=== PATIENT | male | born 1970 | race Caucasian/White ===

== ENCOUNTER 2019-06-23 09:37 | Day surgery (SDC) | payer BC ==
[~2019-06-23] VITALS: Ht 182.9 cm; Wt 107.3 kg
[~2019-06-23 09:37] MED LIST: ALLEGRA ALLERG180 MG; CEPH500 PO; CRUTCH USE; HYDMOR2 PO; HYDPAM50 PO; IRBE150; NAPR220; OXYACE5T PO; PROM25 PO; RXCEPH500 PO; RXHYDMOR2 PO; SULTRISS PO; TADA10TA; THERA1 EACH; VENL150ER PO
== END 2019-06-23 11:48 | disposition home or self-care (01) ==
LOC: ORSCSDS 09:37
PROVIDERS: Surgery
PROC: 0DBK8ZX Excision of Ascending Colon, Via Natural or Artificial Opening Endoscopic, Diagnostic (ICD-10-PCS; principal; 2019-06-23 11:00)
PROC: 0DBL8ZX Excision of Transverse Colon, Via Natural or Artificial Opening Endoscopic, Diagnostic (ICD-10-PCS; principal; 2019-06-23 11:00)
DX: Z12.11 Encounter for screening for malignant neoplasm of colon (principal); Z86.010 Personal history of colon polyps; D12.2 Benign neoplasm of ascending colon; D12.3 Benign neoplasm of transverse colon; I10 Essential (primary) hypertension; Z85.46 Personal history of malignant neoplasm of prostate; Z79.899 Other long term (current) drug therapy
CPT/HCPCS: 88305; J2704; J7120

== ENCOUNTER → 2023-07-23 | Outpatient (CLI) | payer BC ==
[2023-07-23 16:46] LABS: BASOPHILS ABSOLUTE AUTO 0.05 K/mm3 (0.00-0.23); BASOPHILS PERCENT AUTO 1 % (0-2); EOSINOPHILS ABSOLUTE AUTO 0.06 K/mm3 (0.00-0.68); EOSINOPHILS PERCENT AUTO 1 % (0-6); Hematocrit 45.8 % (37.0-53.0); Hemoglobin 15.8 g/dL (13.5-17.5); IMMATURE GRAN PERCENT AUTO 0 % (0-1); LYMPHOCYTES PERCENT AUTO 33 % (21-46); MONOCYTES ABSOLUTE AUTO 0.36 K/mm3 (0.16-1.47); MONOCYTES PERCENT AUTO 6 % (4-13); Mean Corpuscular HGB 31.6 pg (26.0-34.0); Mean Corpuscular HGB Conc 34.5 g/dL (31.5-36.5); Mean Corpuscular Volume 92 fL (80-100); NEUTROPHILS ABSOLUTE AUTO 3.78 K/mm3 (1.96-9.15); NEUTROPHILS PERCENT AUTO 60 % (41-73); Platelet Count 245 K/mm3 (150-400); RDW Coefficient Variation 12.1 % (11.7-14.2); RDW Standard Deviation 40.7 fL (35.1-46.3); White Blood Cell Count 6.35 K/mm3 (4.00-11.30)
[2023-07-23 17:23] LABS: CHOL/HDL RATIO 2.7; Cholesterol 222 mg/dL (50-200); HDL Cholesterol 82 mg/dL (>39); LDL/HDL RATIO 1.4; Low Density Lipoprotein Chol 118 mg/dL (0-110); Triglycerides 112 mg/dL (30-160); Very Low Density Lipoprot Chol 22 mg/dL (6-32)
[2023-07-25 06:12] LABS: A/G RATIO 2.6 (1.2-2.2); BILIRUBIN, TOTAL 0.4 mg/dL (0.0-1.2); CALCIUM, SERUM 9.7 mg/dL (8.7-10.2); CREATININE, SERUM 0.85 mg/dL (0.76-1.27); GLOBULIN, TOTAL 1.9 g/dL (1.5-4.5); POTASSIUM, SERUM 4.6 mmol/L (3.5-5.2); PROTEIN, TOTAL, SERUM 6.9 g/dL (6.0-8.5)
== END ==
LOC: LAB SHORT 11:27 → LAB 11:27
PROVIDERS: Physician Assistant Medical
DX: Z00.00 Encounter for general adult medical examination without abnormal findings (principal)
CPT/HCPCS: 80053; 80061; 85025